=== PATIENT | male | born 1965 | race Hispanic/Latino ===

== ENCOUNTER 2023-02-06 03:52 | Emergency (ER) | payer OTHER ==
[~2023-02-06] VITALS: Ht 165.1 cm; Wt 90.1 kg
[~2023-02-06 03:52] MED LIST: ACETAMINOPHEN500 MG PO; IBUPROFEN600 MG PO; JARDIANCE25 MG PO; OXYCODON-ACETA1 EAC2 PO
--- OUTSIDE RECORDS SUMMARY | 2023-02-06 03:54 | XMS ---
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 Adelfo VISIT COUNT (12 MO.) [address] [place] [address] [facility] T[facility] 3 NOTE: Visits indicate total known visits. ED/UCC VISIT TRACKING (12 MO.) 02/06/2023 03:52 [facility] TYPE: Emergency COMPLAINT: - SOB/BACK PAIN 01/30/2023 23:13 [facility] [place] TYPE: Emergency COMPLAINT: - ABD PAIN 12/03/2022 08:54 [facility] TYPE: Emergency COMPLAINT: - Unspecified abdominal pain DIAGNOSES: 1. Generalized abdominal pain 2. Constipation, unspecified INPATIENT VISIT TRACKING (12 MO.) 01/30/2023 23:14 [facility] [place] TYPE: Observation COMPLAINT: - CHOLECYSTITIS DIAGNOSES: - Calculus of gallbladder with acute cholecystitis without obstruction - Contact with and (suspected) exposure to COVID-19 [email or web address]
[2023-02-06 04:23] LABS: BASOPHILS 0.4 % (0-2); EOSINOPHILS 2.9 % (0-6); HEMATOCRIT 46.8 % (35.0-50.0); HEMOGLOBIN 15.6 g/dL (12.0-18.0); LYMPHOCYTES 29.2 % (24-44); MCH 29.6 (27-36); MCHC 33.3 g/dl (30-36); MCV 88.7 fl (81-99); MONOCYTES 5.4 % (0-12); NEUTROPHILS 62.1 % (39-80); PLATELET COUNT 224 K/uL (140-440); RBC 5.27 M/ul (4.3-5.7); RDW 12.3 (10.5-15.0)
[2023-02-06 04:26] LABS: INR 0.96 (0.80-1.30); PROTIME 12.4 Sec (11.2-14.2)
[2023-02-06 04:36] LABS: ALBUMIN 3.8 g/dL (3.4-5.0); ALBUMIN/GLOBULIN RATIO 1.09 (1.1-2.4); ALKALINE PHOSPHATASE 196 U/L (46-116); ALT (SGPT) 139 U/L (14-59); ANION GAP 11.6 (7-21); AST (SGOT) 28 U/L (15-37); BILIRUBIN, TOTAL 0.9 ng/dL (0.2-1.0); BUN/CREATININE RATIO 12.85 (6.0-28.6); CALCIUM 9.4 mg/dL (8.5-10.1); CARBON DIOXIDE 29 mmol/L (21-32); CHLORIDE 100 mmol/L (98-107); GLOMERULAR FILTRATION RATE,EST 109 mL/min (>60); POTASSIUM 3.6 mmol/L (3.5-5.1); PROTEIN, TOTAL 7.3 g/dL (6.4-8.2); UREA NITROGEN 9 mg/dL (7-18)
[2023-02-06] MEDS ORDERED: HYDROCODON-ACE1 EA10 PO (09:56)
[2023-02-06 10:04] VITALS: BP 140/86
--- NOTE | 2023-02-06 20:35 | EKG ---
[facility] [address] [address] [place] [address] Signed Normal sinus rhythm Left axis deviation Cannot rule out Anterior infarct , age undetermined Abnormal ECG When compared with ECG of 31-JAN-2023 10:12, No significant change was found Confirmed by Osmar Collado MD () on 02/06/2023 8:35:14 PM Electronically Signed By: OSMAR COLLADO MD 02/06/232034 PATIENT NAME: CESIAHALEYKRISTOFER LEARY Electrocardiogram DATE OF : 69 PHYSICIAN: OSMAR COLLADO MD REPORT #: [id number] REPORT IS CONFIDENTIAL AND NOT TO BE RELEASED WITHOUT AUTHORIZATION
== END 2023-02-06 10:04 | disposition home or self-care (01) ==
LOC: ED 03:52
PROVIDERS: Family Medicine
DX: R74.01 Elevation of levels of liver transaminase levels (principal); M54.6 Pain in thoracic spine; R07.89 Other chest pain; E11.9 Type 2 diabetes mellitus without complications; Z79.84 Long term (current) use of oral hypoglycemic drugs; Z90.49 Acquired absence of other specified parts of digestive tract
CPT/HCPCS: 36415; 71275; 74174; 74175; 74183; 80053; 83690; 84484; 85025; 85610; 93005; 93010; 99284-25; A9579; J1170; J2270; J2405; Q9967

== ENCOUNTER 2023-03-12 01:55 | Emergency (ER) | payer OTHER ==
[~2023-03-12] VITALS: Ht 165.1 cm; Wt 90.0 kg
--- OUTSIDE RECORDS SUMMARY | ~2023-03-12 | XMS | Continuity of Care Document ---
Demographics + + + | Address | [address] | | | [place] [address] | + + + | Preferred Language | Unknown | + + + | Marital Status | | + + + | Latter Day Affiliation | Unknown | + + + | Race | Unknown | + + + | Ethnic Group | Unknown | + + + Author + + + | Author | [facility] | + + + | Organization | [facility] | + + + | Address | [address] | | | [place] [address] | + + + | Phone | | + + + Care Team Providers + + + + | Care Foundry Laborer Coreroom Name | Role | Phone | + + + + Unavailable | Unavailable | + + + + Unavailable | Unavailable | + + + + Allergies No information. Encounters No information. Functional Status No information. Immunizations No information. Medications + + + + | date | description | facility | + + + + | 2023-02-20 00:00 | empagliflozin 10 MG Oral | [facility] | | | Tablet [Jardiance] | | + + + + | 2023-02-20 00:00 | Jardiance 10 MG Oral | [facility] | | | Tablet | | + + + + | 2023-02-13 00:00 | gabapentin 300 MG Oral | [facility] | | | Capsule | | + + + + | 2023-02-20 00:00 | gabapentin 600 MG Oral | [facility] | | | Tablet | | + + + + | 2023-02-13 00:00 | Gabapentin 300 MG Oral | [facility] | | | Capsule | | + + + + | 2023-02-20 00:00 | Gabapentin 600 MG Oral | [facility] | | | Tablet | | + + + + Problems No information. Procedures No information. Results/Labs +--------+--------+ +---------+--------+---------+ | test | date | facility | value | unit | notes | +--------+--------+ +---------+--------+---------+ + + | COMPREHENSIVE METABOLIC PANEL | + + + + + +--------+ + + | GLOBULIN | 2023-02-13 | [facility] | 2.8 | g/dl | (missing) | | | 11:53 [facility] | | | | + + + +--------+ + + | ALKALINE | 2023-02-13 | [facility] | 117 | U/L | (missing) | | PHOS | 11:53 [facility] | | | | + + + +--------+ + + | ALT(SGPT) | 2023-02-13 | [facility] | 36 | U/L | (missing) | | | 11:53 [facility] | | | | + + + +--------+ + + | ALBUMIN | 2023-02-13 | [facility] | 4.2 | g/dl | (missing) | | | 11:53 [facility] | | | | + + + +--------+ + + | A/G RATIO | 2023-02-13 | [facility] | 1.5 | (missing) | (missing) | | | 11:53 [facility] | | | | + + + +--------+ + + | CALCIUM | 2023-02-13 | [facility] | 9.9 | mg/dL | (missing) | | | 11:53 [facility] | | | | + + + +--------+ + + | ANION GAP | 2023-02-13 | [facility] | 14.7 | (missing) | (missing) | | | 11:53 [facility] | | | | + + + +--------+ + + | AST(SGOT) | 2023-02-13 | [facility] | 19 | U/L | (missing) | | | 11:53 [facility] | | | | + + + +--------+ + + | BILIRUBIN, | 2023-02-13 | [facility] | 0.6 | mg/dL | (missing) | | TOTAL | 11:53 [facility] | | | | + + + +--------+ + + | CARBON | 2023-02-13 | [facility] | 28 | meq/L | (missing) | | DIOXIDE | 11:53 | [facility] | | | | | [facility] | | | | + + + +--------+ + + | CHLORIDE | 2023-02-13 | [facility] | 96 | meq/L | (missing) | | | 11:53 | [facility] | | | | | | [facility] | | | | + + + +--------+ + + | CREATININE, | 2023-02-13 | [facility] | 0.63 | mg/dL | (missing) | | SERUM | 11:53 | [facility] | | | | | | | [facility] | | | | + + + +--------+ + + | GLUCOSE | 2023-02-13 | [facility] | 282 | mg/dL | (missing) | | | 11:53 | [facility] | | | | | | | [facility] | | | | + + + +--------+ + + | POTASSIUM | 2023-02-13 | [facility] | 4.7 | meq/L | (missing) | | | 11:53 | [facility] | | | | | | | [facility] | | | | + + + +--------+ + + | PROTEIN | 2023-02-13 | [facility] | 7.0 | g/dL | (missing) | | | 11:53 | [facility] | | | | | | | [facility] | | | | + + + +--------+ + + | SODIUM | 2023-02-13 | [facility] | 134 | meq/L | (missing) | | | 11:53 | [facility] | | | | | | | [facility] | | | | + + + +--------+ + + | UREA | 2023-02-13 | [facility] | 11 | mg/dL | (missing) | | NITROGEN | 11:53 | [facility] | | | | | | | [facility] | | | | + + + +--------+ + + | | 2023-02-13 | [facility] | 17.5 | (missing) | (missing) | | BUN/CREAT.RA | 11:53 | MEDICAL | | | | | LATRICIA | | [facility] | | | | + + + +--------+ + + | GFR | 2023-02-13 | [facility] | 112 | ml/min | (missing) | | ESTIMATION | 11:53 | [facility] | | | | | | | [facility] | | | | + + + +--------+ + + + + | HEMOGLOBIN A1C PANEL | + + + + + +-------+---------+ + | EST AVG | 2023-02-13 | [facility] | 223 | mg/dL | (missing) | | GLUCOSE | 11:53 | [facility] | | | | | | | [facility] | | | | + + + +-------+---------+ + | HEMOGLOBIN | 2023-02-13 | [facility] | 9.4 | % | (missing) | | A1C | 11:53 | [facility] | | | | | | | [facility] | | | | + + + +-------+---------+ + + + | TSH, 3rd GEN. | + + + + + +---------+ + + | TSH, 3rd | 2023-02-13 | [facility] | 1.090 | uIU/ml | (missing) | | GEN. | 11:53 | [facility] | | | | | | | [facility] | | | | + + + +---------+ + + +-------+ | CBC | +-------+ + + + +--------+--------+ + | HEMOGLOBIN | 2023-02-13 | [facility] | 15.2 | g/dl | (missing) | | | 11:53 [facility] | | | | [facility] | | | | + + + +--------+--------+ + | RDW | 2023-02-13 | [facility] | 11.9 | % | (missing) | | | 11:53 | [facility] | | | | | | [facility] | | | | + + + +--------+--------+ + | HEMATOCRIT | 2023-02-13 | [facility] | 44.5 | % | (missing) | | | 11:53 | [facility] | | | | | | [facility] | | | | + + + +--------+--------+ + | MONOCYTES | 2023-02-13 | [facility] | 5.6 | % | (missing) | | | 11:53 | [facility] | | | | | | [facility] | | | | + + + +--------+--------+ + | WBC | 2023-02-13 | [facility] | 6.2 | K/ul | (missing) | | | 11:53 | [facility] | | | | | | | [facility] | | | | + + + +--------+--------+ + | BASOPHILS | 2023-02-13 | [facility] | 0.7 | % | (missing) | | | 11:53 | [facility] | | | | | | [facility] | | | | + + + +--------+--------+ + | EOSINOPHILS | 2023-02-13 | [facility] | 3.1 | % | (missing) | | | 11:53 | [facility] | | | | | | [facility] | | | | + + + +--------+--------+ + | LYMPHOCYTES | 2023-02-13 | [facility] | 36.4 | % | (missing) | | | 11:53 | [facility] | | | | | | [facility] | | | | + + + +--------+--------+ + | NEUTROPHILS | 2023-02-13 | [facility] | 54.2 | % | (missing) | | | 11:53 | [facility] | | | | | | [facility] | | | | + + + +--------+--------+ + | PLATELET | 2023-02-13 | [facility] | 296 | K/ul | (missing) | | COUNT | 11:53 | [facility] | | | | | | | [facility] | | | | + + + +--------+--------+ + | MCH | 2023-02-13 | [facility] | 29 | pg | (missing) | | | 11:53 | [facility] | | | | | | | [facility] | | | | + + + +--------+--------+ + | MCHC | 2023-02-13 | [facility] | 34 | g/dL | (missing) | | | 11:53 | [facility] | | | | | | | [facility] | | | | + + + +--------+--------+ + | MCV | 2023-02-13 | [facility] | 86.2 | fl | (missing) | | | 11:53 | [facility] | | | | | | | [facility] | | | | + + + +--------+--------+ + | RBC | 2023-02-13 | [facility] | 5.16 | M/ul | (missing) | | | 11:53 | [facility] | | | | | | | [facility] | | | | + + + +--------+--------+ + Social History + + + + | date | description | facility | + + + + | 2023-02-14 00:00 | Smoker (finding) | [facility] | | | | | + + + + | 2023-02-14 00:00 | Ex-smoker (finding) | [facility] | | | | | + + + + | 2023-02-21 00:00 | Never smoked tobacco | [facility] | | | (finding) | | + + + + | 2023-02-21 00:00 | Smoker (finding) | [facility] | | | | | + + + + | 2023-02-21 00:00 | Ex-smoker (finding) | [facility] | | | | | + + + + Vital Signs + + + + + | date | measurement | value | units | + + + + + | 2023-02-13 00:00 | BMI | 33 | 1 | + + + + + | 2023-02-13 00:00 | BP_diastolic | 70 | mmHg | + + + + + | 2023-02-13 00:00 | BP_systolic | 118 | mmHg | + + + + + | 2023-02-13 00:00 | BSA | 2 | 1 | + + + + + | 2023-02-13 00:00 | heart_rate | 1|1| | completed | + + + + + | 2023-02-13 00:00 | heart_rate | 68 | /min | + + + + + | 2023-02-13 00:00 | height_metric | 164.47 | cm | + + + + + | 2023-02-13 00:00 | height_standard | 64.75 | in | + + + + + | 2023-02-13 00:00 | o2_saturation | 99 | % | + + + + + | 2023-02-13 00:00 | respiration_rate | 16 | /min | + + + + + | 2023-02-13 00:00 | temperature_metric | 36.5 | C | | | | | | + + + + + | 2023-02-13 00:00 | | 97.7 | F | | | temperature_standar | | | | | d | | | + + + + + | 2023-02-13 00:00 | weight_metric | 89.36 | kg | + + + + + | 2023-02-13 00:00 | weight_standard | 197 | lb | + + + + + | 2023-02-20 00:00 | BMI | 34 | 1 | + + + + + | 2023-02-20 00:00 | BP_diastolic | 72 | mmHg | + + + + + | 2023-02-20 00:00 | BP_systolic | 132 | mmHg | + + + + + | 2023-02-20 00:00 | BSA | 2 | 1 | + + + + + | 2023-02-20 00:00 | heart_rate | 1|1| | completed | + + + + + | 2023-02-20 00:00 | heart_rate | 70 | /min | + + + + + | 2023-02-20 00:00 | height_metric | 164.47 | cm | + + + + + | 2023-02-20 00:00 | height_standard | 64.75 | in | + + + + + | 2023-02-20 00:00 | o2_saturation | 98 | % | + + + + + | 2023-02-20 00:00 | respiration_rate | 16 | /min | + + + + + | 2023-02-20 00:00 | temperature_metric | 36.5 | C | | | | | | + + + + + | 2023-02-20 00:00 | | 97.7 | F | | | temperature_standar | | | | | d | | | + + + + + | 2023-02-20 00:00 | weight_metric | 92.08 | kg | + + + + + | 2023-02-20 00:00 | weight_standard | 203 | lb | + + + + +"
[~2023-03-12 01:55] MED LIST changes: +HYDROCODON-ACE1 EA10 PO
--- OUTSIDE RECORDS SUMMARY | 2023-03-12 01:59 | XMS ---
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 PHONE: [phone] MILO RIBERA [facility] Current PHONE: Unknown Joel has no Care Guidelines for this patient. Adelfo VISIT COUNT (12 MO.) [address] TOTAL 5 NOTE: Visits indicate total known visits. 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 Generalized abdominal pain 2. Constipation, unspecified INPATIENT VISIT TRACKING (12 MO.) 01/30/2023 23:14 [facility] [place] TYPE: Observation COMPLAINT: - CHOLECYSTITIS DIAGNOSES: - Calculus of gallbladder with acute and chronic cholecystitis without obstruction - Calculus of gallbladder with acute cholecystitis without obstruction - Contact with and (suspected) exposure to COVID-19 - Type 2 diabetes mellitus without complications [id number]
[2023-03-12] MEDS ORDERED: JARDIANCE10 MG PO (02:19)
[2023-03-12] MEDS ORDERED: GABAPENTIN300 MG PO (02:20)
[2023-03-12 02:47] LABS: BILIRUBIN, URINE NEGATIVE (negative); BLOOD/HGB, URINE NEGATIVE (Negative); KETONE, URINE TRACE (Negative); LEUK ESTERASE, URINE NEGATIVE (negative); NITRITE, URINE NEGATIVE (negative); PH, URINE 5.5 (5-7)
[2023-03-12 02:48] LABS: BASOPHILS 0.4 % (0-2); EOSINOPHILS 4.1 % (0-6); HEMATOCRIT 44.9 % (35.0-50.0); HEMOGLOBIN 14.7 g/dL (12.0-18.0); MCH 28.8 (27-36); MCHC 32.7 g/dl (30-36); MCV 88.2 fl (81-99); MONOCYTES 6.3 % (0-12); NEUTROPHILS 45.2 % (39-80); PLATELET COUNT 220 K/uL (140-440); RBC 5.09 M/ul (4.3-5.7)
[2023-03-12 03:06] LABS: ALBUMIN/GLOBULIN RATIO 0.42 (1.1-2.4); ANION GAP 10.9 (7-21); BILIRUBIN, TOTAL 0.4 ng/dL (0.2-1.0); BUN/CREATININE RATIO 21.21 (6.0-28.6); CALCIUM 8.7 mg/dL (8.5-10.1); CREATININE, SERUM 0.66 mg/dL (0.70-1.30); POTASSIUM 3.9 mmol/L (3.5-5.1); PROTEIN, TOTAL 6.8 g/dL (6.4-8.2)
[2023-03-12] MEDS ORDERED: LYRICA75 MG PO (04:03)
[2023-03-12] MEDS ORDERED: TRAZODONE HCL50 MG PO (04:03)
[2023-03-12] MEDS ORDERED: COLACE100 MG PO (04:05)
[2023-03-12 04:19] VITALS: BP 127/101
== END 2023-03-12 04:20 | disposition home or self-care (01) ==
LOC: ED 01:55
PROVIDERS: Family Medicine
DX: M51.36 Other intervertebral disc degeneration, lumbar region (principal); K59.00 Constipation, unspecified; E11.9 Type 2 diabetes mellitus without complications; Z79.84 Long term (current) use of oral hypoglycemic drugs
CPT/HCPCS: 36415; 72100; 80053; 81003; 83690; 85025; J1885; J3360